=== PATIENT | female | born 1975 | race Caucasian/White ===

== ENCOUNTER 2019-02-20 18:43 | Emergency (ER) | payer OTHER ==
[2019-02-20] MEDS: IBUPROFEN 600 MG TAB PO (19:22)
[2019-02-20 19:23] LABS: URINE BLOOD (Dip) POC 3+ (NEGATIVE); URINE GLUCOSE (Dip) POC Negative (NEGATIVE); URINE KETONES (Dip) POC Trace (NEGATIVE); URINE LEUKOCYTE EST (Dip) POC Negative (NEGATIVE); URINE NITRITE (Dip) POC Negative (NEGATIVE); URINE TOTAL PROTEIN POC 1+ (NEGATIVE)
[2019-02-20 19:23] LABS: URINE PH (Dip) POC 6.5 (5.0-8.5)
== END 2019-02-20 20:36 | disposition home or self-care (01) ==
LOC: FTE 18:43
DX: I10 Essential (primary) hypertension (principal); F17.210 Nicotine dependence, cigarettes, uncomplicated
CPT/HCPCS: 81003; 81025; 99283